=== PATIENT | male | born 1960 | race Caucasian/White ===

== ENCOUNTER 2021-08-24 13:48 | Outpatient (CLI) | payer OTHER, SELFPAY ==
[2021-08-24 15:13] LABS: Hemoglobin A1C 5.6 % (<5.7)
[2021-08-24 15:15] LABS: Alanine Aminotransferase 24 U/L (6-50); Alkaline Phosphatase 81 U/L (38-126); Anion Gap 10 mmol/L (8-16); Aspartate Amino Transferase 31 U/L (17-59); Bilirubin,Total 0.6 mg/dL (0.2-1.3); Blood Urea Nitrogen 11 mg/dL (9-20); Calcium 9.2 mg/dL (8.4-10.2); Carbon Dioxide 24 mmol/L (22-30); Chloride 106 mmol/L (98-107); Cholesterol 182 mg/dL (0-200); Estimated Glomerular Filt Rate > 60; Glucose 100 mg/dL (65-110); HDL Direct 39 mg/dL; Potassium 4.1 mmol/L (3.4-5.0); Sodium 140 mmol/L (137-145); Triglycerides 128 mg/dL (<150)
[2021-08-24 15:26] LABS: LDL Cholesterol Direct 103 mg/dL
[2021-08-24 15:46] LABS: Prostate Specific Antigen 2.6 ng/mL (< OR = 4.0)
== END 2021-08-24 13:49 | disposition home or self-care (01) ==
LOC: ANHLAB 13:54
PROVIDERS: PCP Internal Medicine; Visit Provider Internal Medicine
DX: I10 Essential (primary) hypertension (principal); R73.9 Hyperglycemia, unspecified; E78.5 Hyperlipidemia, unspecified; Z12.5 Encounter for screening for malignant neoplasm of prostate
CPT/HCPCS: 36415; 80053; 80061; 83036; 84153; G0103

== ENCOUNTER 2021-12-10 00:56 | Day surgery (SDC) | payer SELFPAY ==
[2021-11-23 11:37] VITALS: BMI 30.4
--- NOTE | 2021-12-07 14:19 | PM.HPGS ---
History of Present Illness History of Present Illness Consent: Risks, benefits, and alternatives have been discussed and questions answered. Patient agrees to proceed with procedure. Chief complaint: hx colon polyps, neoplasm screening Narrative: Mikhail Pastor is a 61 year old male Referred for colon cancer screening. He had a tubular adenoma removed about 5 years ago. Review of Systems Review of Systems: All systems reviewed & are unremarkable except as noted in HPI and below PMFSH Social History Social History Smoking packs per day: 1 Smoking cigarettes per day: 20.0 Smoking status: Current every day smoker Tobacco type: cigarettes Alcohol intake: current Drinks per week: 1 Alcohol use details: [employer] Substance use: former Substance use type: marijuana Last use: 1996 Living arrangements: with family Spiritual care concerns: No Meds Home Medications and Allergies Home Medications Medication Instructions Recorded Confirmed Type lisinopril 20 mg tablet 20 mg PO DAILY 11/23/21 12/10/21 History simvastatin 40 mg tablet 40 mg PO DAILY 11/23/21 12/10/21 History Allergies Allergy/AdvReac Type Severity Reaction Status Date / Time Penicillins Allergy Unknown Hives Verified 12/10/21 08:43 Sulfa (Sulfonamide Allergy Unknown Hives Verified 12/10/21 08:43 Antibiotics) Exam Resp: Auscultation: clear to auscultation bilaterally Cardio: Rate: regular rate Rhythm: regular rhythm GI: GI Palp: Yes Soft to palpation and No Tenderness to palpation present (GI) Assessment and Plan Assessment and plan (1) Colon cancer screening: Code(s): Z12.11 - Encounter for screening for malignant neoplasm of colon Status: Acute Assessment and Plan: Colonoscopy with possible biopsy or polypectomy or cautery or injection of substances.
[2021-12-10 08:45] VITALS: BP 144/85; PULSE 59; RESP 20; TEMP 36.6; O2SAT 98; BMI 30.8
[2021-12-10] MEDS: LACTATED RINGERS 1,000 ML 150 ML IV CONT (08:50)
--- NOTE | 2021-12-10 09:18 | P.PNAN_ITS ---
Anes - Initial Pre Proc Eval Procedure: Operation Date: 12/10/21 09:30 Proposed Procedures p Screening Colonoscopy - Harvey Youngblood MD Date/Time: 12/10/21 09:18 Surgeon: Harvey Youngblood MD Pre Op Diagnosis: hx colon polyps, neoplasm screening Patient Data Age: 61 Gender: M Height: 1.73 m Weight: 92 kg Last Vital Signs Temp 98 F 12/10/21 08:45 Pulse 59 L 12/10/21 08:45 Resp 20 12/10/21 08:45 BP 144/85 H 12/10/21 08:45 Pulse Ox 98 12/10/21 08:45 O2 Del Method Room Air 12/10/21 08:45 Allergies Allergy/AdvReac Type Severity Reaction Status Date / Time Penicillins Allergy Unknown Hives Verified 12/10/21 08:43 Sulfa (Sulfonamide Allergy Unknown Hives Verified 12/10/21 08:43 Antibiotics) Home Medications Medication Instructions Recorded Confirmed Type lisinopril 20 mg tablet 20 mg PO DAILY 11/23/21 12/10/21 History simvastatin 40 mg tablet 40 mg PO DAILY 11/23/21 12/10/21 History Patient hx anesthesia problems: none Family hx anesthesia problems: none Results Review: All pre-operative results and documents have been reviewed as part of the pre- operative evaluation. [facility] Social History Social History Smoking packs per day: 1 Smoking cigarettes per day: 20.0 Smoking status: Current every day smoker Tobacco type: cigarettes Alcohol intake: current Drinks per week: 1 Alcohol use details: [facility] Substance use: former Substance use type: marijuana Last use: 1996 Living arrangements: with family Spiritual care concerns: No Anes - Eval Final PreProcedure Day of Procedure 12/10/21 09:18 Patient weight: normal Heart: regular rate and rhythm Lungs: clear to auscultation Airway: Mallampati scale class II Neurological: alert and oriented Last oral intake: >/= 8 hours ASA classification: II Emergent: no Anesthetic plan: proceed Anesthesia type and monitoring: general GIVS and standard monitoring Results Review: All pre-operative results and documents have been reviewed as part of the pre- operative evaluation. Informed Consent: The patient's anesthetic plan and its attendant risks and benefits were discussed with the patient/family/POA. Questions were solicited and answers provided to the satisfaction of the patient/family/POA.
[2021-12-10 09:39] VITALS: BP 114/71; PULSE 63; RESP 19; O2SAT 97
[2021-12-10 09:49] VITALS: BP 120/81; PULSE 56; RESP 21; O2SAT 99
[2021-12-10 09:59] VITALS: BP 119/80; PULSE 51; RESP 15; O2SAT 100
== END 2021-12-10 10:02 | disposition home or self-care (01) ==
PROVIDERS: PCP Internal Medicine; Visit Provider Internal Medicine Gastroenterology
PROC: 0DJD8ZZ Inspection of Lower Intestinal Tract, Via Natural or Artificial Opening Endoscopic (ICD-10-PCS; CPT 45378; principal; 2021-12-10 09:30)
DX: Z12.11 Encounter for screening for malignant neoplasm of colon (principal); Z86.010 Personal history of colon polyps; K57.30 Diverticulosis of large intestine without perforation or abscess without bleeding; F17.210 Nicotine dependence, cigarettes, uncomplicated; F12.90 Cannabis use, unspecified, uncomplicated
CPT/HCPCS: 45378; J2704; J7120

== ENCOUNTER 2024-02-13 08:56 | Emergency (ER) | payer OTHER, SELFPAY ==
[2024-02-13 09:06] VITALS: BP 164/95; PULSE 62; RESP 20; TEMP 37.6; O2SAT 99
--- NOTE | 2024-02-13 09:43 | ED_ITS ---
HPI - General Adult General Chief complaint: Allergic Reaction Stated complaint: Swollen Right Side Face Time Seen by Provider: 02/13/24 09:43 Source: patient, RN notes reviewed and old records reviewed Mode of arrival: ambulatory Limitations: no limitations History of Present Illness HPI narrative: Patient presents with complaints of right-sided facial swelling. He reports that he applied Neosporin to a sore that he noticed near his mustache yesterday, awakened this morning to find the right side of his face had swollen. He denies any fever, chills, sweats. He denies any injury or trauma. He is managing own secretions, no drooling or stridor noted. Swelling does not extend into the neck. He voices no other concerns or complaints. He has not been taking anything for his symptoms Related Data Home Medications Medication Instructions Recorded Confirmed lisinopril 20 mg tablet 20 mg PO DAILY 11/23/21 02/13/24 simvastatin 40 mg tablet 40 mg PO DAILY 11/23/21 02/13/24 Allergies Allergy/AdvReac Type Severity Reaction Status Date / Time Penicillins Allergy Unknown Hives Verified 02/13/24 09:01 Sulfa (Sulfonamide Allergy Unknown Hives Verified 02/13/24 09:01 Antibiotics) Review of Systems Review of Systems: All systems reviewed & are unremarkable except as noted in HPI and below Constitutional: Constitutional: Reports no additional constitutional complai nts ENT: Reports system reviewed and no additional complaints, except as documented Cardiovascular: Cardiovascular: Reports no additional cardiovascular complaints Respiratory: Respiratory: Reports no additional respiratory complaints Gastrointestinal: Gastrointestinal: Reports no additional gastrointestinal complaints Integumentary/Breasts: Skin/Breast: Reports system reviewed and no additional complaints, except as docu, Reports as per HPI, Reports swelling and Reports new lesions [facility] Social History Social History Smoking packs per day: 1 Smoking cigarettes per day: 20.0 Smoking status: Current every day smoker Tobacco type: cigarettes Alcohol intake: current Drinks per week: 1 Alcohol use details: [facility] Substance use: former Substance use type: marijuana Last use: 1996 Living arrangements: with family Spiritual care concerns: No Comments At the time of my signature, I reviewed and agree with the nursing past medical, surgical, social, and family history. There is no relevant family history pertinent to the patient complaint. Exam Const: General: cooperative, no acute distress, alert and awake Orientation/consciousness: oriented to person, oriented to place and oriented to time HENMT: Head: normal to inspection Ears: TM's normal bilaterally Face/Nose/Sinus: no nasal discharge noted, edema and Facial tenderness on exam of face and sinuses Face images: 1. Swelling, tenderness, some associated induration at right upper lip. Small open sore at shaved area near the mustache Mouth: Yes moist mucous membranes Throat: posterior oropharynx normal Resp: Effort & Inspection: normal respiratory effort and able to speak in complete sentences Auscultation: clear to auscultation bilaterally, no crackles, no rales, no rhonchi and no wheezes Cardio: Palpation: normal PMI Rate: regular rate Rhythm: regular rhythm Heart sounds: S1 normal heart sound present and S2 normal heart sound present Neuro: General: oriented to person, oriented to place and oriented to time Cranial nerves: Yes CN's II-XII intact bilaterally Psych: Appearance: grossly normal Thought process: Normal thought process present Insight: Good insight present (Psych) Judgement: Good judgement present (Psych) Course Course Level of Care: Express Care Visit Vital Signs Vital signs: Vital Signs Temperature 99.6 F 02/13/24 09:06 Pulse Rate 62 02/13/24 09:06 Respiratory Rate 20 02/13/24 09:06 Blood Pressure 164/95 H 02/13/24 09:06 Pulse Oximetry 99 02/13/24 09:06 Oxygen Delivery Room Air 02/13/24 09:06 Temperature 99.6 F 02/13/24 09:06 Pulse Rate 62 02/13/24 09:06 Respiratory Rate 20 02/13/24 09:06 Blood Pressure 164/95 H 02/13/24 09:06 Pulse Oximetry 99 02/13/24 09:06 Oxygen Delivery Room Air 02/13/24 09:06 Reviewed Medical Decision Making MDM Narrative Medical decision making narrative: Patient with small sore, likely neck does he was shaving his mustache. Now with resulting cellulitis. Swelling does not extend into the neck at this time. No dental abnormalities noted. Given repeated a with which symptoms developed, start clindamycin. Patient is nontoxic appearing, able to manage own secretions, stable for discharge home. Discharge instructions reviewed with patient, as well as provided in writing per nursing staff. The instructions also include specific and strict return/GO TO THE ER as well as f/u information. All questions have been answered, and the patient deny any further questions with discharge and discharge plan. Some parts of this dictation were generated by voice recognition software and may contain typographical and/or grammatical inaccuracies. Differential Diagnosis Differential Diagnosis: Dental infection, cellulitis, facial and Medical Records Medical records reviewed: Yes I reviewed the external patient's medical records. Vital Signs Vital Signs: Vital Signs Temperature 99.6 F 02/13/24 09:06 Pulse Rate 62 02/13/24 09:06 Respiratory Rate 20 02/13/24 09:06 Blood Pressure 164/95 H 02/13/24 09:06 Pulse Oximetry 99 02/13/24 09:06 Oxygen Delivery Room Air 02/13/24 09:06 Temperature 99.6 F 02/13/24 09:06 Pulse Rate 62 02/13/24 09:06 Respiratory Rate 20 02/13/24 09:06 Blood Pressure 164/95 H 02/13/24 09:06 Pulse Oximetry 99 02/13/24 09:06 Oxygen Delivery Room Air 02/13/24 09:06 reviewed Lab Data Lab results reviewed: Yes I reviewed the patient's lab results. Lab results narrative: reviewed Discharge Plan Discharge Clinical Impression: Cellulitis Patient Disposition: Home, Self-Care Condition: Stable Instructions: Antibiotic Form, Cellulitis (ED) Additional Instructions: Take medication as prescribed. Follow-up with primary care provider. Emergency department for new or worse symptoms Patient Language: Uzbek Prescriptions: New clindamycin HCl 300 mg capsule 300 mg PO TID Qty: 30 0RF prednisone 50 mg tablet 50 mg PO DAILY Qty: 4 0RF Rx Instructions: first dose tomorrow No Action lisinopril 20 mg tablet 20 mg PO DAILY simvastatin 40 mg tablet 40 mg PO DAILY Follow-up/Referrals: Meenakshi,Tal Sullivan MD [Primary Care Provider] - 3 Days Time of Disposition: 10:26
[2024-02-13] MEDS: predniSONE 20 MG TABLET 40 MG PO (10:05)
== END 2024-02-13 10:45 | disposition home or self-care (01) ==
PROVIDERS: Emergency Provider Nurse Practitioner Family; PCP Internal Medicine
DX: L03.211 Cellulitis of face (principal); F17.210 Nicotine dependence, cigarettes, uncomplicated
CPT/HCPCS: 99213; G0463; J7512